=== PATIENT | female | born 2000 | race Caucasian/White ===

== ENCOUNTER → 2022-08-18 | Outpatient (CLI) | payer BC ==
[~2022-08-18] MED LIST: CATHETER FLUSH 10 ML SYR IV PRN; HOLD METFORMIN - RECEIVED CONTRAST 20 ML VIAL IV SCH; IOHEXOL 350 MG/ML 100 ML (OMNIPAQUE 350) VIAL IV ONE; NS 100 ML (IVPB) BAG IV ONE
--- NOTE | 2022-08-18 22:17 | Diagnostic Imaging Report ---
CLINICAL INDICATIONS: Patient with left ear cholesteatoma for 5 years. EXAM: Axial CT scan of the temporal bone structures without IV contrast. Sagittal and coronal reformatted images were created. Auto Exposure Controls were utilized during the CT exam to meet ALARA standards for radiation dose reduction. COMPARISON: None. FINDINGS: Right temporal bone structures: There are large amounts of fluid and consolidation involving the right mastoid air cells. There is moderate to large amounts of consolidation of fluid involving the right middle ear region. Stapes bone is not well visualized on this exam and probably obscured by consolidation. Otherwise, the malleus and incus bones are unremarkable and appear intact. There is no bony erosive or destructive process seen. There is no evidence of semicircular canal dehiscence. The right otic capsule is unremarkable. There is no evidence of dehiscence of the semicircular canals. The temporal bone portions of the 7th cranial nerve involving the right temporal bone structures are unremarkable. High riding right jugular bulb is noted. The oval window and round windows unremarkable. Right carotid canal is intact and unremarkable. There is bony loss involving the tegmen tympani region which measures at least 6 mm in transverse dimensions and at least 7 mm in AP dimension. The tegmen mastoideum is intact. The scutum is intact. Bony right IAC regions show no significant abnormality. The vestibular canal is unremarkable. The extracranial soft tissue structures show no significant abnormality. Left temporal bone structures: There is complete consolidation of the left mastoid air cells and left middle ear region. There is a lobulated area of density extending laterally in the expected region of the left tympanic membrane and is adjacent to the region of the scutum. There appear to be some erosive changes of the scutum and epitympanum region. There is bony deformity involving the malleus and incus concerning for erosions. The stapes is not visualized. There are also erosive changes seen involving the aditus ad antrum region and left mastoid region. There are no erosions involving the carotid canal or otic capsule. There is a questionable defect involving the tegmen tympani measuring roughly 4 mm in transverse dimension and 2 mm in AP dimension. There is no evidence of dehiscence of the semicircular canal. The left vestibular canal is intact. The temporal bone portions of the left 7th cranial nerve are unremarkable. The extracranial soft tissue shows no significant abnormality. IMPRESSION: 1: There is complete consolidation of the left mastoid air cells and left middle ear region. There are also erosion deformities of the left middle ear ossicles, scutum and epitympanum regions. There is exophytic consolidation extending lateral to the expected region of the tympanic membrane. These findings are concerning for cholesteatoma. 2: There is fluid/consolidation involving the right middle ear and right mastoid regions with no significant bony erosive changes. These findings may be related to otomastoiditis. 3: There is concern for possible dehiscence of the bilateral tegmen tympani and right tegmen mastoideum. Given the amount of fluid and consolidation in the middle ear and mastoid air cells, CSF leak should be excluded. 4: High riding right jugular bulb. Dictated by: Dictated on workstation # [id number]
== END ==
LOC: RAD 08:57
PROVIDERS: ATTEND Otolaryngology Otolaryngology/Facial Plastic Surgery
DX: H71.92 Unspecified cholesteatoma, left ear (principal)
CPT/HCPCS: 70481